=== PATIENT | male | born 1950 | race Caucasian/White ===

== ENCOUNTER 2018-07-08 02:10 | Emergency (ER) | payer MEDICARE, OTHER ==
--- NOTE | 2018-07-08 02:34 | ED Physician Documentation ---
General Adult - HISTORIAN Historian: patient - HPI Stated Complaint: htn Chief Complaint: General Adult Further Comments: yes (68 year old male patient presents with complaints of hypertension feeling "whoozy". Patient has been keeping blood pressure log and checking pressures frequently at home. Read multiple books tonight about hypertension, came to ER for evaluation.) - ROS CONST: no problems EYES/ENT: none CVS/RESP: none GI/: none MS/SKIN/LYMPH: joint pain (left shoulder ) NEURO/PSYCH: denies: headache, fainting, dizziness, tingling, numbness, difficulty walking, difficulty with speech, anxiety, depression, other - PAST HX Past History: hypertension, other (HLD) Allergies/Adverse Reactions: Allergies Allergy/AdvReac Type Severity Reaction Status Date / Time No Known Allergies Allergy Verified 07/08/18 02:40 Home Medications: Ambulatory Orders Medication Instructions Recorded Simvastatin [Zocor] 40 mg PO D 07/08/18 Valsartan/Hydrochlorothiazide 1 tab PO D 07/08/18 [Diovan Hct 160-25 mg Tablet] - SOCIAL HX Smoking History: non-smoker - FAMILY HX Family History: No - VITAL SIGNS Vital Signs: Vital Signs Temp Pulse Resp BP Pulse Ox 97.8 F 70 18 177/91 96 07/08/18 02:15 07/08/18 02:15 07/08/18 02:15 07/08/18 02:15 07/08/18 02:15 - REVIEWED ASSESSMENTS Nursing Assessment Reviewed: Yes Vitals Reviewed: Yes Progress - Progress Progress: Reviewed BP log. Mild hypertension noted in late afternoon. SBP staying under 160, SBP staying under 88. Will give clonidine in ER. BP 166/84 after resting in ER. Instructed patient to follow up with PCP, let her make changes in his medication. Continue exercises, limit sodium intake. Patient monitored in ER; BP improved after clonidine PO. 155/64 ED Results Lab/Radiology - Orders Orders: ED Orders Category Date Time Status CloNIDine HCL [Catapress] Med 07/08/18 02:32 Once 0.1 mg PO NOW ONE General Adult Physical Exam - PHYSICAL EXAM GENERAL APPEARANCE: [id number] N EENT: eye inspection normal, AMY NECK: normal inspection, thyroid normal RESPIRATORY: no resp distress, chest non-tender, breath sounds normal ABDOMEN: soft, no organomegaly, normal bowel sounds, no abdominal bruit, other (protuberant abd; obese) BACK: normal inspection, no CVA tenderness SKIN: normal color, warm/dry, NR, INT, PAL, DR EXTREMITIES: non-tender, normal range of motion, no evidence of injury, no edema, J, BIRD SITTER NEURO: oriented X3, CN's nml as tested, motor nml, sensation nml, mood/affect nml Discharge Clincal Impression: Hypertension Qualifiers: Hypertension type: essential hypertension Qualified Code(s): I10 - Essential (primary) hypertension Referrals: Primary Doctor,No [Primary Care Provider] - 2 Days Additional Instructions: Continue exercising. Limit Sodium intake to 2300 MG per day. Do not take your BP after exercise, when stressed or after heavy activity. Send your BP log to your doctor tomorrow. She will make any changes in your medications. Return to Er if you have chest pain, severe shortness of breath, severe headache, vision changes, difficulty speaking, or weakness in your arms or legs. Condition: Stable Disposition: 01 HOME, SELF-CARE Decision to Admit: NO Decision Time: 02:40
[2018-07-08] MEDS: CloNIDine HCL 0.1 MG TABLET PO ONE (02:40)
[2018-07-08 04:28] VITALS: BP 166/73
== END 2018-07-08 03:00 | disposition home or self-care (01) ==
LOC: ED 02:10
DX: I10 Essential (primary) hypertension (principal)
CPT/HCPCS: 99282